=== PATIENT | female | born 1980 | race Caucasian/White ===

== ENCOUNTER → 2024-03-25 13:36 | Outpatient (REF) | payer OTHER, SELFPAY | LOC: HWRAD 13:36 | PROVIDERS: ATTENDING PHYSICIAN Obstetrics & Gynecology Gynecology; FAMILY PHYSICIAN Family Medicine | DX: N93.9 Abnormal uterine and vaginal bleeding, unspecified (principal); R10.2 Pelvic and perineal pain | CPT/HCPCS: 76830; 76856 ==

== ENCOUNTER 2024-04-29 06:49 | Emergency (ER) | payer OTHER, SELFPAY ==
[2024-04-29 06:58] VITALS: BP 128/83
--- NOTE | 2024-04-29 07:29 | ED.GENMED ---
History of Present Illness
General
Chief Complaint: Facial Problem
Source: patient
Exam Limitations: none
Time Seen by Provider: 04/29/24 07:12
Nursing documentation reviewed up to this point in time: agreed with except (Patient has right facial droop, not facial numbness as noted in triage)
History of Present Illness
History of Present Illness:
44-year-old female with past medical history of GERD, asthma who presents to the emergency room for evaluation of right sided facial droop. Patient reports that over the past few days she has had viral symptoms�she says that she has had sore
throat, runny nose. Few days ago also developed a cold sore right upper palate. She has not had any fevers or chills. She has not had any rash. This morning she woke up with right sided facial droop and came to the emergency to be evaluated.
She denies any numbness. She denies any change in her vision or speech. She denies any weakness or numbness in her extremities. Denies headache or neck pain. She denies any other complaints. She does note that she was working outside doing
leaves over the weekend but she does not recall any bug bite/tick bites and, again, denies rash.
Past History
Past History
ED Past Medical History: Asthma, GERD and Other (UTI)
ED Past Surgical History: , Gynecological (Ectopic ) and Other (Abd sleeve)
Social History
Tobacco: Smoker
Alcohol: Occasional
Personal:
Living: with family
Employment: Employed
Review of Systems
Review of Systems
All Other Systems: ROS reviewed and negative except as documented in HPI and ROS
Constitutional: Reports fatigue; Denies fever or chills
EENT: Reports sore throat and runny nose
Respiratory: Denies cough or trouble breathing
Cardiac: Denies chest pain or palpitations
ABD/GI: Denies nausea or vomiting
: Denies flank pain
Musculoskeletal: Denies neck pain or back pain
Neurological: Denies dizzy or headache
Phy Exam
Physical Exam
Physical Exam:
General: Awake, alert, oriented x3; no acute distress
Head: Normocephalic, atraumatic
Eyes: Conjunctiva normal, EOMI, pupils equal round reactive to light bilaterally
Ears: TMs clear bilaterally
Throat: Airway intact, handling secretions; patient has shallow-based palatal ulcer on the right
Neck: Trachea midline, supple without meningismus
Lungs: Clear to auscultation bilaterally, no wheezing, rales, rhonchi
Heart: Regular rate and rhythm, no murmurs, gallops, or rubs
Neuro: Patient has right-sided facial droop which does NOT spare the forehead; cranial nerves otherwise intact; no limb ataxia, speech fluid without dysarthria or aphasia, motor and sensory function intact proximally and distally in all extremities
Skin: no rash
Extremities: No edema in extremities, warm and well-perfused
Scores
Heart Failure Risk
Heart Failure Risk Score: Not Applicable
Heart Score for Chest Pain Patients
STEMI patient?: Not applicable
Withdrawal Assessment of Alcohol
Withdrawal Assessment Completed?: Not applicable
Course
Orders/Labs/Results
Orders:
Orders
04/29/24 07:23
Lyme Progressive Urgent
Monotest Urgent
04/29/24 07:24
COVID-19 Antigen Urgent
Source: Nasal Swab
Influenza A+B Rapid Molecular Urgent
MISSY Source: Nasal Swab
Specimen Description:
Prednisone [Deltasone] 60 mg PO NOW STA
04/29/24 07:25
Artificial Tears (Pf) [Refresh Eye Drops (Pf)] 1 drops OPHTH ONCE ONE
Valacyclovir HCl [Valtrex] 1,000 mg PO ONCE ONE
Vital Signs
Initial and Last Documented VS:
Initial Vital Signs
Temp Pulse Resp BP Pulse Ox
37.2 C 88 18 128/83 99
04/29/24 06:58 04/29/24 06:58 04/29/24 06:58 04/29/24 06:58 04/29/24 06:58
Last Documented Vital Signs
Temp Pulse Resp BP Pulse Ox
37.2 C 88 18 128/83 99
04/29/24 06:58 04/29/24 06:58 04/29/24 06:58 04/29/24 06:58 04/29/24 06:58
MDM/Problems Addressed
Differential Diagnosis Includes:
Oden's palsy
MDM/Problems Addressed:
44-year-old female presents for evaluation of right facial droop in the setting of recent viral symptoms and mild sore. Vitals normal. Exam as above. 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 Likely triggered by recent virus. She was
working outside believes she recently will check Lyme's test but hold on empiric treatment with no reported tick bite and no rash. Will treat with Valtrex given oral sore. Treat with steroids. Artificial tears and eye protection. Provided
counseling regarding diagnosis, treatment plan including need for meticulous eye protection. Will have patient follow-up with neurology as well as ophthalmology for eye check. Patient comfortable with this plan. Spoke but return precautions all
questions answered.
*Pulse Oximetry
Patient hypoxic: no
*Critical Care Note
Total Time (30-74mins, 75-104mins- exclusive of procedures): Not Applicable
Data Reviewed
Source: patient
ED Attending Note
-
Portions of this chart may have been created with voice recognition software.� Occasional wrong word or��sound alike� substitutions may have occurred due to the inherent limitations of voice recognition software.
Discharge Plan
Departure
Patient Disposition: Home (Routine Discharge)
Date of Disposition: 04/29/24
Time of Disposition: 07:39
Patient with high blood pressure during this ER visit?: No
Discharge Problem:
Oden's palsy
Instructions: Oden's Palsy (DC)
Prescriptions:
New
prednisone 20 mg tablet
60 mg PO DAILY 7 Days Qty: 21 0RF
valacyclovir [Valtrex] 1 gram tablet
1,000 mg PO TID 7 Days Qty: 21 0RF
Artificial Tears (PF) Dropperette
1 drp ophthalmic (eye) Q1H 14 Days Qty: 32 0RF
No Action
fluticasone propion-salmeterol [Advair Diskus] 250 MCG/50 MCG blister with device
1 puff inhalation BID Qty: 1 0RF
montelukast [Singulair] 10 MG tablet
10 mg PO DAILY Qty: 30 0RF
albuterol sulfate [ProAir HFA] 8.5 GM HFA aerosol inhaler
8.5 gm IH QIDPRN PRN (Reason: cough/wheeze) Qty: 1 0RF
Tablet
Referrals:
Emmett Ingram MD [Active] - Call in 1-3 days for appt (Eye doctor)
Fran Devi MD [Active] - Call in 1-3 days for appt (Neurology)
Activity Restrictions/Additional Instructions:
Thank you for visiting the Emergency Department at [facility].
1. Please schedule a follow up appointment as directed. Call first thing tomorrow morning to make an appointment.
2. If indicated, please take your medications as instructed and indicated on discharge paperwork.
3. If any of your symptoms do not improve, or persist, or become more severe within 6-12 hours, please return to the emergency department for further care.
4. Please return to the emergency department if you develop a headache, neck pain/stiffness, fever greater than 100.4F, chest pain, shortness of breath, persistent nausea, vomiting, slurred speech, difficulty walking, numbness/tingling, weakness,
signs of infection or any other symptoms that are worrisome to you.
Please call [phone] if you have any questions.
Discharge Date and Time
Print Language: KOREAN
[2024-04-29] MEDS: DELTASONE 60 MG PO (07:50)
[2024-04-29] MEDS: REFRESH EYE DROPS (PF) 1 DROPS OPHTH (07:50)
[2024-04-29] MEDS: VALTREX 1000 MG PO (07:51)
[2024-04-29 08:30] LABS: COVID-19 Antigen Negative (Negative)
[2024-04-29 09:03] LABS: Monotest Negative (Negative)
[2024-04-30 11:43] LABS: Lyme Antibody Screen, EIA Negative (Negative)
== END 2024-04-29 07:51 | disposition home or self-care (01) ==
LOC: EMR 06:49
PROVIDERS: EMERGENCY PHYSICIAN Emergency Medicine; FAMILY PHYSICIAN Family Medicine
DX: G51.0 Bell's palsy (principal); J45.909 Unspecified asthma, uncomplicated; K21.9 Gastro-esophageal reflux disease without esophagitis; F17.200 Nicotine dependence, unspecified, uncomplicated
CPT/HCPCS: 99283; 86308; 86618; 86694; 87502; 87811